=== PATIENT | male | born 1985 | race African-American/Black ===

== ENCOUNTER 2017-01-18 07:32 | Emergency (ER) | payer SELFPAY ==
[~2017-01-18 07:32] MED LIST: APRESOLINE; AUGMENTIN PO; HCTZ PO; LISINOPRIL; LOPRESSOR; NO MEDICATIONS; TESSALON200 MG PO; TOPROL XL200 MG PO; VISTARIL PO
== END 2017-01-18 07:35 | disposition home or self-care (01) ==
LOC: CED 07:32
DX: I10 Essential (primary) hypertension (principal); E11.9 Type 2 diabetes mellitus without complications; Z79.899 Other long term (current) drug therapy
CPT/HCPCS: 99282

== ENCOUNTER 2017-03-27 03:13 | Emergency (ER) | payer SELFPAY | END 2017-03-27 05:50 | disposition home or self-care (01) | LOC: CED 03:13 | DX: I10 Essential (primary) hypertension (principal); J45.909 Unspecified asthma, uncomplicated; E11.9 Type 2 diabetes mellitus without complications; F17.210 Nicotine dependence, cigarettes, uncomplicated; Z88.0 Allergy status to penicillin | CPT/HCPCS: 99283 ==

== ENCOUNTER 2017-05-28 08:04 | Emergency (ER) | payer SELFPAY ==
[~2017-05-28] VITALS: Ht 172.7 cm; Wt 172.4 kg
== END 2017-05-28 09:35 | disposition home or self-care (01) ==
LOC: CED 08:04
DX: K05.219 Aggressive periodontitis, localized, unspecified severity (principal); R03.0 Elevated blood-pressure reading, without diagnosis of hypertension; Z88.0 Allergy status to penicillin; F17.210 Nicotine dependence, cigarettes, uncomplicated
CPT/HCPCS: 99282